=== PATIENT | female | born 1965 | race Caucasian/White ===

== ENCOUNTER 2017-02-20 19:09 | Emergency (ER) | payer BC ==
--- NOTE | 2017-02-21 02:44 | ED ORDER SUMMARY ---
..... Patient: MAZIN MINAYA OrderSheet [facility] VisitID: [id number] [place] [address] 51y, F Registration Date/Time: 02/20/2017 ORDER SHEET Weight: 66.6 kg (stated) Allergies: Amoxicillin GENERAL ORDERS: CBC w Diff [facility]19[facility]19 [facility] (Ack 19:21 CHategekimana) (19:49 RCollier R.N.) CMP Urgent (19:19 02/20/2017 [facility]) (Ack 19:21 CHategekimana) (19:49 RCollier R.N.) UA-Culture if indicated Urgent (19:19 02/20/2017 [facility] DO) (Ack 19:21 CHategekimana) (19:49 RCollier R.N.) Urine Urgent (19:19 02/20/2017 [facility]) (Ack 19:21 CHategekimana) (19:49 RCollier R.N.) Urine Drug Screen Urgent (19:19 02/20/2017 [facility]) (Ack 19:22 CHategekimana) (19:49 RCollier R.N.) Ethyl Alcohol Urgent (19:19 02/20/2017 [facility]) (Ack 19:22 CHategekimana) (19:49 RCollier R.N.) Acetaminophen Level Urgent (19:20 02/20/2017 [facility] DO) (Ack 19:22 CHategekimana) (19:49 RCollier R.N.) Salicylate Level Urgent (19:20 02/20/2017 [facility]) (Ack 19:22 CHategekimana) (19:49 RCollier R.N.) MEDICATION ORDERS: IV FLUIDS: ORDER SHEET NOTES: [Electronically signed by Brianna Wells R.N. (03:26 02/21/2017)] [Electronically signed by Shamir Head Dr. (09:14 02/21/2017)] [Electronically locked/signed by Brianna Wells R.N. (03:26 02/21/2017)Ni
--- NOTE | 2017-02-21 02:44 | ED CLINICAL REPORT ---
Clinical Report - Physicians/Mid Levels [facility] [address] [place] [address] 02/20/2017 19:12 Patient: MAZIN MINAYA Time Seen: 19:18. Arrived- Police present. Historian- patient. HISTORY OF PRESENT ILLNESS Chief Complaint: DEPRESSED. This started just prior to arrival today. (Pt bib [employer] son called police concerned mom had taken an OD of triazolam, per pt there was one pill in the bottle left, pt states taking "a couple of peach vodka shots and a bud light" pt denies SI, police report arriving at pts home with her holding scissors, pt cooperative with police and staff upon arrival. no injurys noted). Recent drug use (prescribed triazolam). Recent alcohol consumption. The patient has had anxiety. Has been depressed. Has had suicidal thoughts (pt denies). No self-injury inflicted. The symptoms are described as moderate. No injury is present. 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 Similar symptoms previously: Recent medical care: Not recently seen/assessed. REVIEW OF SYSTEMS No headache, weakness, chest pain, palpitations or abdominal pain. No vomiting, diarrhea, numbness, fever or sore throat. No cough, difficulty breathing, urinary frequency or skin rash. The patient has had joint pain (myalgias and arthralgias chronically- she relates to fibromyalgia - all chronic). Has had similar previous symptoms of joint pain. PAST HISTORY ( Sexually transmitted disease ("genital warts when I was 18, they've never come back many). Additional Problems: Obsessive Compulsive Disorder. Fibromyalgia.. Additional Surgeries: ..). Medications: PROzac Oral. Hydrocodone-Acetaminophen Oral. ALPRAZolam Oral. Gabapentin Oral. Allergies: Amoxicillin. SOCIAL HISTORY Smoker- current status unknown. Occasional alcohol use. Under the influence in E.D. Has social support. ADDITIONAL NOTES The nursing notes have been reviewed. PHYSICAL EXAM Vital Signs: 02/20/2017 19:14 BP: 158/91. HR: 101. RR: 19. O2 saturation: 97%. Temp: 97.9 F. Pain level now: 0/10. Appearance: Alert. Patient is in mild distress. Patient is cooperative. Eyes: Pupils equal, round and reactive to light. No scleral icterus. ENT: The mucous membranes are not dry. Neck: Normal inspection. Neck supple. No meningeal signs or carotid bruit. CVS: Tachycardia. Heart sounds normal. Respiratory: Breath sounds normal. Chest nontender. Abdomen: Soft and nontender. Back: No tenderness. Skin: Skin warm and dry. Normal skin color. Normal skin turgor. Extremities: Extremities exhibit normal ROM. No calf tenderness. No lower extremity edema. Psych / Neuro: Oriented X 3. Speech is slurred. She is not disoriented. No apparent hallucinations or delusions. Denies suicidal thoughts. Patient does not express homicidal thoughts. Cranial nerves normal (as tested). Abnormal gait. No motor deficit. No sensory deficit. Reflexes normal. LABS, X-RAYS, AND EKG Laboratory Tests: UA-Culture if indicated: (RUBEN: 02/20/2017 19:37) ( MsgRcvd 02/20/2017 19:58) Final results Test Result Flag Units (Reference) URINE COLOR LIGHT YELLOW URINE APPEARANCE CLEAR URINE GLUCOSE NEGATIVE (NEGATIVE) URINE BILIRUBIN NEGATIVE (NEGATIVE) URINE KETONE NEGATIVE (NEGATIVE) URINE SPECIFIC GRAVITY <= 1.005 L (1.010-1.030) URINE PH 6.0 (5.0-8.0) URINE PROTEIN NEGATIVE (NEGATIVE) URINE UROBILINOGEN 0.2 EU/dL (0.2-1.0) URINE NITRITE NEGATIVE (NEGATIVE) URINE BLOOD NEGATIVE (NEGATIVE) URINE LEUK ESTERASE NEGATIVE (NEGATIVE) URINE RBC NONE SEEN rbc/hpf (0-1) URINE WBC 0-1 wbc/hpf (0-1) URINE EPITHELIAL CELLS 1-3 EPI/hpf (0-5) URINE BACTERIA NONE SEEN (NONE SEEN) URINE COMMENT CULT NOT INDICATED URINE CULTURES ARE SET-UP BASED ON THE FOLLOWING CRITERIA:POSITIVE NITRITEPOSITIVE LEUKOCYTE ESTERASEGREATER THAN 10 WHITE BLOOD CELLSMODERATE (2+) OR GREATER BACTERIA Urine: (RUBEN: 02/20/2017 19:37) ( [facility] 02/20/2017 19:50) Final results Test Result Flag Units (Reference) URINE NEGATIVE CBC w Diff: (RUBEN: 02/20/2017 19:30) ( [facility] 02/20/2017 19:48) Final results Test Result Flag Units (Reference) WHITE BLOOD COUNT 10.1 K/uL (4.5-11.5) RED BLOOD COUNT 4.57 M/uL (4.00-5.20) HEMOGLOBIN 15.1 gm/dL (12.0-16.0) HEMATOCRIT 44.4 % (36.0-46.0) MEAN CELL VOLUME 97 fL (80-100) MEAN CORPUSCULAR HGB 33 pg (26-34) MEAN CORPUSCULAR HGB CONC 34 g/dL (31-37) RED CELL DISTRIBUTION WIDTH 12.5 % (11.6-14.8) PLATELET COUNT 173 K/uL (150-400) NEUTROPHIL % 52.4 % (50-75) LYMPH % 40.0 % (25-40) MONO % 5.2 % (3-14) EOSINOPHIL % 0.7 % (0-4) BASOPHIL % 1.7 % (0-2) Salicylate Level: (RUBEN: 02/20/2017 19:30) ( [facility] 02/20/2017 19:50) Final results Test Result Flag Units (Reference) SALICYLATE 5.3 mg/dL (2.8-20) Urine Drug Screen: (RUBEN: 02/20/2017 19:37) ( [facility] 02/20/2017 20:05) Final results Test Result Flag Units (Reference) AMPHETAMINE/METHAMPHETAMINE NEGATIVE (NEGATIVE) BARBITURATE NEGATIVE (NEGATIVE) BENZODIAZEPINE POSITIVE H (NEGATIVE) CANNABINOID NEGATIVE (NEGATIVE) COCAINE NEGATIVE (NEGATIVE) ECSTASY NEGATIVE (NEGATIVE) METHADONE NEGATIVE (NEGATIVE) OPIATE NEGATIVE (NEGATIVE) The urine drug screen is a qualitative screening test fordrug overdose and abuse. All screen results should beconsidered as presumptive.Drugs screened for are as follows:BenzodiazepinesCocaineAmphetamines/MetamphetaminesTHC (Tetrahydrocannabinol)OpiatesBarbituratesEcstasyMethadonePositive results are unconfirmed. For confirmation, notifythe lab for the specimen to be sent to the reference lab.All confirmations must be performed by a differentmethodology.The ingestion of natural herbal and plant productscontaining Ephedra/Ephedra metabolites can produce in urineone or more substances capable of cross reacting withamphetamine/methamphetamine immunoassays. These testsprovide a preliminary result only. A more specificalternative chemical method must be used to obtain aconfirmed analytical result. CMP: (RUBEN: 02/20/2017 19:30) ( MsgRcvd 02/20/2017 20:12) Final results Test Result Flag Units (Reference) GLUCOSE 107 mg/dL (70-110) BUN 10 mg/dL (7-18) CREATININE 0.7 mg/dL (0.6-1.3) Estimated GFR >60 mL/min Estimated GFR- >60 mL/min Note: Persistent reduction over 3 months in eGFR<60 mL/min/1.73 m2 defines CKD. Patients with eGFR values>=60 mL/min/1.73 m2 may also have CKD if evidence ofpersistent proteinuria. Additional information may be foundat www.kidney.org. SODIUM 146 H mmol/L (136-145) POTASSIUM 3.6 mmol/L (3.5-5.1) CHLORIDE 107 mmol/L (98-107) CARBON DIOXIDE 29 mmol/L (21-32) CALCIUM 9.2 mg/dL (8.5-10.1) TOTAL PROTEIN 7.4 g/dL (6.4-8.2) ALBUMIN 3.7 g/dL (3.3-5.0) BILIRUBIN, TOTAL 0.4 mg/dL (0.0-1.0) ALKALINE PHOSPHATASE 114 U/L (46-116) AST (SGOT) 65 H U/L (15-37) ALT (SGPT) 74 U/L (12-78) ETHYL ALCOHOL 229 H mg/dL (3-10) ACETAMINOPHEN < 2.0 L ug/mL (10-30) . (Breathalyzer 0.234). Pulse Oximetry: 02/20/2017 19:14 O2 saturation: 97%. (FIO2 - room air). Interpretation: normal. PROGRESS AND PROCEDURES Course of Care: 02:41 02/21/17. Cleared by PAT, pt is not suicidal or homicidal. Safety contract signed. Patient/family counseled. Old ED records reviewed. Disposition: Discharged home in good and improved condition. Condition: good. CLINICAL IMPRESSION Suicidal ideation Chronic substance abuse- benzodiazepines with intoxication and drug induced mood disorder. Uncomplicated alcohol intoxication. No alcohol intoxication with delirium or alcohol dependence. INSTRUCTIONS Do not smoke. Seek medical help to quit smoking. No alcohol. Seek medical help to quit drinking. Follow-up: Follow up with your doctor tomorrow. Call for an appointment. Screening today revealed the patient's blood pressure to be in the pre-hypertensive range. The patient should follow up with a primary care provider for blood pressure management. (Electronically signed by Shamir Head Dr. 02/21/2017 9:14)
--- NOTE | 2017-02-21 02:44 | ED ORDER SUMMARY ---
..... Patient: MAZIN MINAYA OrderSheet [facility] VisitID: [id number] [place] [address] 51y, F Registration Date/Time: 02/20/2017 ORDER SHEET Weight: 66.6 kg (stated) Allergies: Amoxicillin GENERAL ORDERS: CBC w Diff Urgent (19:19 [facility] (Ack 19:21 CHategekimana) (19:49 RCollier R.N.) CMP Urgent (19:19 02/20/2017 [facility]) (Ack 19:21 CHategekimana) (19:49 RCollier R.N.) UA-Culture if indicated Urgent (19:19 02/20/2017 [facility] DO) (Ack 19:21 CHategekimana) (19:49 RCollier R.N.) Urine Urgent (19:19 02/20/2017 [facility]) (Ack 19:21 CHategekimana) (19:49 RCollier R.N.) Urine Drug Screen Urgent (19:19 02/20/2017 [facility]) (Ack 19:22 CHategekimana) (19:49 RCollier R.N.) Ethyl Alcohol Urgent (19:19 02/20/2017 [facility]) (Ack 19:22 CHategekimana) (19:49 RCollier R.N.) Acetaminophen Level Urgent (19:20 02/20/2017 [facility] DO) (Ack 19:22 CHategekimana) (19:49 RCollier R.N.) Salicylate Level Urgent (19:20 02/20/2017 [facility]) (Ack 19:22 CHategekimana) (19:49 RCollier R.N.) MEDICATION ORDERS: IV FLUIDS: ORDER SHEET NOTES: [Electronically signed by Brianna Wells R.N. (03:26 02/21/2017)] [Electronically signed by Shamir Head Dr. (09:14 02/21/2017)] [Electronically locked/signed by Brianna Wells R.N. (03:26 02/21/2017)Ni
--- NOTE | 2017-02-21 02:44 | ED NURSING NOTES ---
Clinical Report - Nurses [facility] [address] [place] [address] 02/20/2017 19:12 Patient: MAZIN MINAYA TRIAGE Triage time 19:14 Feb 20 2017. Acuity: LEVEL 2. Chief Complaint: DEPRESSION and (pt bib [employer] son called police concerned mom had taken an OD of triazolam, per pt there was one pill in the bottle left, pt states taking "a couple of peach vodka shots and a bud light" pt denies SI, police report arriving at pts home with her holding scissors, pt cooperative with police and staff upon arrival. no injurys noted). Alert. SEPSIS SCREEN: Sepsis Screen. Negative (no infection suspected/documented). JAY COMA SCORE: Jay Coma Scale: 15- eyes open spontaneously (4); best verbal response- oriented x 4 (5); best motor response- obeys commands (6). BREATHALYZER: Breathalyzer (0.234). --19:21 Kaylynn Stewart R.N. 19:14 02/20/17. BP: 158/91. HR: 101. RR: 19. O2 saturation: 97% on room air. Temp: 97.9 F. Pain level now: 0/10. --19:21 Kaylynn Stewart R.N. Weight: 66.6 kg stated. Height/Length: 65 inches Per Patient. BMI: 24.5. --19:18 Kaylynn Stewart R.N. Medications Gabapentin Oral. --19:27 Kaylynn Stewart R.N. ALPRAZolam Oral. --19:27 Kaylynn Stewart R.N. Hydrocodone-Acetaminophen Oral. --19:27 Kaylynn Stewart R.N. PROzac Oral. --19:27 Kaylynn Stewart R.N. Allergies Amoxicillin. --19:26 Page-Kuchan, Karyol, R.N. Medication/allergy information source: the patient. --19:21 Kaylynn Stewart R.N. History Historian: patient. Arrived in police custody from home and in police custody. Onset: just prior to arrival. She describes feelings of depression. Treatment CLINICAL CYTOPATHOLOGIST: None. PAST MEDICAL HX: Immunizations: up-to-date. The patient is post-menopausal. SOCIAL HX: Smoker- current status unknown (cigarette). Occasional alcohol use. Patient smells of ETOH in the emergency department. No infectious disease exposure. ABUSE ASSESSMENT: No report of abuse. SELF HARM ASSESSMENT: A self harm assessment was performed. The patient answered "yes" to the question "Have you recently felt down, depressed, or hopeless?" and "Have you noticed less interest or pleasure in doing things?" and "no" to the question "Do you have thoughts of harming or killing yourself?", "Are you here because you tried to hurt yourself?", "Have you ever tried to hurt yourself before today?", "Have you recently had thoughts about harming or killing others?" and "Do you have any dangerous items in your possession?". The police reported the patient's behavior. 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 FALL RISK ASSESSMENT: Fall risk assessment completed. No fall risk identified. NUTRITIONAL RISK ASSESSMENT: The nutritional risk assessment revealed no deficiencies. FUNCTIONAL ASSESSMENT: Functional assessment: no impairments noted. LEARNING NEEDS ASSESSMENT: The learning needs assessment revealed no barriers. SKIN INTEGRITY ASSESSMENT: Skin integrity risk assessment completed. No skin integrity risk identified. --19:21 Kaylynn Stewart R.N. PROBLEMS: ADHD - Attention Deficit Hyperactivity Disorder. STD - Sexually Transmitted Disease. Obsessive Compulsive Disorder. Fibromyalgia. --:28 Kaylynn Stewart R.N. ADDITIONAL SURGERIES: . --28 Kaylynn Stewart R.N. Interventions ID and allergy band on patient. ID and allergy band checked. Protocol initiated at triage (behavioral health). To treatment room. --19:21 Kaylynn Stewart R.N. PHYSICAL ASSESSMENT GENERAL / NEURO / PSYCH: Alert. Oriented X 4. Appears in no acute distress. Appears anxious. She is awake and alert, has a steady gait and shows no apparent trauma. She is pink and well hydrated, appears anxious, has poor eye contact and exhibits poor consolability. She is well nourished, exhibits normal mobility, appearance is consistent with stated age and is well developed and well dressed. Speech within normal limits. Patient's mood/affect appears tearful. Appears anxious, frustrated, sad and tearful. Mood/affect not suicidal. Patient appears well-nourished and neat and clean. RESPIRATORY: Respirations not labored. CVS: Capillary refill less than 2 seconds. GI / : Abdomen soft and nontender. SKIN: Skin intact. Skin is warm and dry. Skin color is within normal limits. --19:22 Kaylynn Stewart R.N. NURSING PROGRESS NOTES Patient ID band checked for patient name and birthdate: patient confirmed. Blood samples drawn from the right forearm and left antecubital space with 23g by tech per protocol ; labeled in presence of the patient and sent to lab: [facility]. --19:32 Payal Chinchilla R.N. Patient ID band checked for patient name and birthdate: patient confirmed. Instructions provided to collect clean catch urine and patient verbalized understanding. Clean catch urine collected with return of yellow-colored urine; sample sent to lab for urinalysis and drug screen. Specimen labeled in the presence of the patient. Call light placed in reach. Side rails up x 1. ( pts son in [facility], pt wishes to see pt, pts clothing bagged/tagged, pt to bathroom with steady gait, collected urine for drug screen, pt updated on poc to see social science instructor, pt notified she must be legally sober to speak with sw). --19:46 Kaylynn Stewart R.N. ( nephew at bedside, pts son left his telephone number for the chart so when SW has an ETA he would like to speak with them.). --20:39 Kaylynn Stewart R.N. ( pts belongings bagged/tagged and placed in locker number 5 with lock number 2). --20:39 Kaylynn Stewart R.N. ( telephone number for son Perez [phone]). --20:40 Kaylynn Stewart R.N. ( PT requiring frequent reminders to stay in room, pt cont tearful "this is wrong, this is wrong"). --21:27 Kaylynn Stewart R.N. Call light placed in reach. Side rails up x 1. ( pt given gatorade, declined offer of food, pt waiting sober for SW). --22:00 Kaylynn Stewart R.N. 21:59 02/20/17. BP: 133/81. HR: 80. RR: 17. O2 saturation: 100%. Pain level now: 0. --22:00 Kaylynn Stewart R.N. Care transferred and report given (Brianna RN). --22:15 Kaylynn Stewart R.N. The patient reports no complaints. Overall patient status is improved- she states feels better. ( pt given warm blanket, and water. pt calm and resting). GENERAL / NEURO / PSYCH: Alert. Patient appears calm and cooperative. Affect appears normal. RESPIRATORY: No respiratory distress. SKIN: Skin is warm and dry. Skin color within normal limits. --23:24 Brianna Wells R.N. Two patient identifiers checked. Call light placed in reach. Side rails up x 1. Bed placed in lowest position. Brakes of bed on. --23:24 Brianna Wells R.N. ( breathalyzer .092). --23:52 Rodney Deleon, ER Block Layer. DISPOSITION / DISCHARGE Departure time: 308. Condition at departure: improved and stable. ( pt A&O x4 at time of DC and ambulated out of department without gait disturbance with family). No learning barriers present. Discharge instructions provided and reviewed with the patient. Reviewed referral to family practice for followup. Patient verbalized understanding. Written instructions provided in Tajik. No medication instructions. The patient was discharged home and accompanied by family. She left the Emergency Department ambulatory and via private vehicle. Family member driving. FALL RISK ASSESSMENT: Fall risk assessment completed. No fall risk identified. --03:26 Brianna Wells R.N. 03:09 02/21/17. BP: 138/91 taken on the left arm, while lying. HR: 88 (regular and normal rate). RR: 18 (regular and unlabored). O2 saturation: 96% on room air. Temp: deferred. Pain level now: 0/10. --03:26 Brianna Wells R.N. Locked/Released at 02/21/2017 3:26 by Brianna Wells R.N.
--- NOTE | 2017-02-21 02:44 | ED NURSING NOTES ---
Clinical Report - Nurses [facility] [address] [place] [address] 02/20/2017 19:12 Patient: MAZIN MINAYA TRIAGE Triage time 19:14 Feb 20 2017. Acuity: LEVEL 2. Chief Complaint: DEPRESSION and (pt bib [employer] son called police concerned mom had taken an OD of triazolam, per pt there was one pill in the bottle left, pt states taking "a couple of peach vodka shots and a bud light" pt denies SI, police report arriving at pts home with her holding scissors, pt cooperative with police and staff upon arrival. no injurys noted). Alert. SEPSIS SCREEN: Sepsis Screen. Negative (no infection suspected/documented). JAY COMA SCORE: Jay Coma Scale: 15- eyes open spontaneously (4); best verbal response- oriented x 4 (5); best motor response- obeys commands (6). BREATHALYZER: Breathalyzer (0.234). --19:21 Kaylynn Stewart R.N. 19:14 02/20/17. BP: 158/91. HR: 101. RR: 19. O2 saturation: 97% on room air. Temp: 97.9 F. Pain level now: 0/10. --19:21 Kaylynn Stewart R.N. Weight: 66.6 kg stated. Height/Length: 65 inches Per Patient. BMI: 24.5. --19:18 Kaylynn Stewart R.N. Medications Gabapentin Oral. --19:27 Kaylynn Stewart R.N. ALPRAZolam Oral. --19:27 Kaylynn Stewart R.N. Hydrocodone-Acetaminophen Oral. --19:27 Kaylynn Stewart R.N. PROzac Oral. --19:27 Kaylynn Stewart R.N. Allergies Amoxicillin. --19:26 Page-Kuchan, Karyol, R.N. Medication/allergy information source: the patient. --19:21 Kaylynn Stewart R.N. History Historian: patient. Arrived in police custody from home and in police custody. Onset: just prior to arrival. She describes feelings of depression. 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 PAST MEDICAL HX: Immunizations: up-to-date. The patient is post-menopausal. SOCIAL HX: Smoker- current status unknown (cigarette). Occasional alcohol use. Patient smells of ETOH in the emergency department. No infectious disease exposure. ABUSE ASSESSMENT: No report of abuse. SELF HARM ASSESSMENT: A self harm assessment was performed. The patient answered "yes" to the question "Have you recently felt down, depressed, or hopeless?" and "Have you noticed less interest or pleasure in doing things?" and "no" to the question "Do you have thoughts of harming or killing yourself?", "Are you here because you tried to hurt yourself?", "Have you ever tried to hurt yourself before today?", "Have you recently had thoughts about harming or killing others?" and "Do you have any dangerous items in your possession?". The police reported the patient's behavior. 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 FALL RISK ASSESSMENT: Fall risk assessment completed. No fall risk identified. NUTRITIONAL RISK ASSESSMENT: The nutritional risk assessment revealed no deficiencies. FUNCTIONAL ASSESSMENT: Functional assessment: no impairments noted. LEARNING NEEDS ASSESSMENT: The learning needs assessment revealed no barriers. SKIN INTEGRITY ASSESSMENT: Skin integrity risk assessment completed. No skin integrity risk identified. --19:21 Kaylynn Stewart R.N. PROBLEMS: ADHD - Attention Deficit Hyperactivity Disorder. STD - Sexually Transmitted Disease. Obsessive Compulsive Disorder. Fibromyalgia. --:28 Kaylynn Stewart R.N. ADDITIONAL SURGERIES: . --28 Kaylynn Stewart R.N. Interventions ID and allergy band on patient. ID and allergy band checked. Protocol initiated at triage (behavioral health). To treatment room. --19:21 Kaylynn Stewart R.N. PHYSICAL ASSESSMENT GENERAL / NEURO / PSYCH: Alert. Oriented X 4. Appears in no acute distress. Appears anxious. She is awake and alert, has a steady gait and shows no apparent trauma. She is pink and well hydrated, appears anxious, has poor eye contact and exhibits poor consolability. She is well nourished, exhibits normal mobility, appearance is consistent with stated age and is well developed and well dressed. Speech within normal limits. Patient's mood/affect appears tearful. Appears anxious, frustrated, sad and tearful. Mood/affect not suicidal. Patient appears well-nourished and neat and clean. RESPIRATORY: Respirations not labored. CVS: Capillary refill less than 2 seconds. GI / : Abdomen soft and nontender. SKIN: Skin intact. Skin is warm and dry. Skin color is within normal limits. --19:22 Kaylynn Stewart R.N. NURSING PROGRESS NOTES Patient ID band checked for patient name and birthdate: patient confirmed. Blood samples drawn from the right forearm and left antecubital space with 23g by tech per protocol ; labeled in presence of the patient and sent to lab: rainbow set. --19:32 Payal Chinchilla R.N. Patient ID band checked for patient name and birthdate: patient confirmed. Instructions provided to collect clean catch urine and patient verbalized understanding. Clean catch urine collected with return of yellow-colored urine; sample sent to lab for urinalysis and drug screen. Specimen labeled in the presence of the patient. Call light placed in reach. Side rails up x 1. ( pts [facility], pt wishes to see pt, pts clothing bagged/tagged, pt to bathroom with steady gait, collected urine for drug screen, pt updated on poc to see director social welfare, pt notified she must be legally sober to speak with sw). --19:46 Kaylynn Stewart R.N. ( nephew at bedside, pts son left his telephone number for the chart so when SW has an ETA he would like to speak with them.). --20:39 Kaylynn Stewart R.N. ( pts belongings bagged/tagged and placed in locker number 5 with lock number 2). --20:39 Kaylynn Stewart R.N. ( telephone number for son Perez [phone]). --20:40 Kaylynn Stewart R.N. ( PT requiring frequent reminders to stay in room, pt cont tearful "this is wrong, this is wrong"). --21:27 Kaylynn Stewart R.N. Call light placed in reach. Side rails up x 1. ( pt given gatorade, declined offer of food, pt waiting sober for SW). --22:00 Kaylynn Stewart R.N. 21:59 02/20/17. BP: 133/81. HR: 80. RR: 17. O2 saturation: 100%. Pain level now: 0. --22:00 Kaylynn Stewart R.N. Care transferred and report given (Brianna RN). --22:15 Kaylynn Stewart R.N. The patient reports no complaints. Overall patient status is improved- she states feels better. ( pt given warm blanket, and water. pt calm and resting). GENERAL / NEURO / PSYCH: Alert. Patient appears calm and cooperative. Affect appears normal. RESPIRATORY: No respiratory distress. SKIN: Skin is warm and dry. Skin color within normal limits. --23:24 Brianna Wells R.N. Two patient identifiers checked. Call light placed in reach. Side rails up x 1. Bed placed in lowest position. Brakes of bed on. --23:24 Brianna Wells R.N. ( breathalyzer .092). --23:52 Rodney Deleon, ER Bench Assembly Inspector. DISPOSITION / DISCHARGE Departure time: 308. Condition at departure: improved and stable. ( pt A&O x4 at time of DC and ambulated out of department without gait disturbance with family). No learning barriers present. Discharge instructions provided and reviewed with the patient. Reviewed referral to family practice for followup. Patient verbalized understanding. Written instructions provided in [place]. No medication instructions. The patient was discharged home and accompanied by family. She left the Emergency Department ambulatory and via private vehicle. Family member driving. FALL RISK ASSESSMENT: Fall risk assessment completed. No fall risk identified. --03:26 Brianna Wells R.N. 03:09 02/21/17. BP: 138/91 taken on the left arm, while lying. HR: 88 (regular and normal rate). RR: 18 (regular and unlabored). O2 saturation: 96% on room air. Temp: deferred. Pain level now: 0/10. --03:26 Brianna Wells R.N. Locked/Released at 02/21/2017 3:26 by Brianna Wells R.N.
--- NOTE | 2017-02-21 09:14 | ED MAR SUMMARY ---
..... Medication Administration Record [facility] [address] [place], [place] [id number] Patient: MAZIN MINAYA Visit ID: [id number] 51y, F Weight: 66.6 kg Height/Length: 65 in BMI: 24.5 ALLERGIES: Amoxicillin
--- NOTE | 2017-02-21 09:14 | ED MAR SUMMARY ---
..... Medication Administration Record [facility] [address] [place], [place] [id number] Patient: MAZIN MINAYA Visit ID: [id number] 51y, F Weight: 66.6 kg Height/Length: 65 in BMI: 24.5 ALLERGIES: Amoxicillin
--- NOTE | 2017-02-21 09:14 | ED DISCHARGE INSTRUCTIONS ---
Patient: MAZIN MINAYA General Instructions [facility] VisitID: [id number] [place] [address] 51y, F Registration Date/Time: 02/20/2017 Suicidal ideation Chronic substance abuse- benzodiazepines with intoxication and drug induced mood disorder. Uncomplicated alcohol intoxication. No alcohol intoxication with delirium or alcohol dependence. INSTRUCTIONS Do not smoke. Seek medical help to quit smoking. No alcohol. Seek medical help to quit drinking. Follow-up: Follow up with your doctor tomorrow. Call for an appointment. Screening today revealed the patient's blood pressure to be in the pre-hypertensive range. The patient should follow up with a primary care provider for blood pressure management. ADDITIONAL INFORMATION Depression Depression is one of the most common mental health problems today. It is not just a state of unhappiness or sadness. It is a true disease. The cause seems to be related to a decrease in chemicals that transmit signals in the brain. Having a family history of depression, alcoholism or suicide increases the risk. Chronic illness, chronic pain, migraine headaches and high emotional stress also increase the risk. Depression can cause many different symptoms, such as: -- Loss of appetite -- Over-eating -- Not being able to sleep -- Sleeping too much -- Tiredness not related to physical exertion -- Restlessness or irritability -- Slowness of movement or speech -- Feeling depressed or withdrawn -- Loss of interest in things you once enjoyed -- Difficulty in concentrating, poor memory, have trouble making decisions -- Thoughts of harming or killing oneself, or thoughts that life is not worth living -- Low self-esteem The best treatment for depression is a combination of medicine and psychotherapy. Antidepressant medicines can reduce suffering and can improve the ability to function during the depressed period. Therapy can offer emotional support and help you understand emotional factors that may be causing the depression. Home Care: 1) Be kind to yourself. Make it a point to do things that you enjoy (gardening, walking in nature, going to a movie, etc.). Reward yourself for small successes. 2) Take care of your physical body. Eat a balanced diet (low in saturated fat and high in fruits and vegetables). Establish an exercise plan at least 3 times a week for 30 minutes. Even mild-moderate exercise (like brisk walking) can make you feel better. 3) Avoid alcohol, which can make depression worse. Follow-Up with your doctor as advised. It is important to keep in contact with a health care provider until your symptoms begin to improve. Get Prompt Medical Attention if any of the following occur: -- Feeling extreme depression, fear, anxiety, or anger toward yourself or others -- Feeling out of control -- Feeling that you may try to harm yourself or another -- Hearing voices that others do not hear -- Seeing things that others do not see -- Cant sleep or eat for 3 days in a row Alcohol Intoxication Alcohol intoxication occurs when you drink alcohol faster than your liver can remove it from your system. Alcohol intoxication affects your judgment and coordination. Very high blood alcohol levels can cause coma, very slow breathing and even . If you drink alcohol every day, this may gradually cause permanent damage to your liver, brain, heart, pancreas and other organs. Alcohol use during may cause permanent damage to the growing baby. Home Care: Do not drink any more alcohol. DO NOT DRIVE until all effects of the alcohol have worn off. Get lots of rest over the next few days. Drink plenty of water and other non-alcoholic liquids. Try to eat regular meals. If you have been drinking heavily on a daily basis, you may go through alcohol withdrawl. This is also called the shakes or DTs. The usual symptoms last 3 to 4 days and may include nervousness, shakiness, nausea, sweating or sleeplessness. During this time, it is best that you stay with family or friends who can help and support you. You can also admit yourself to a residential detox program. If your symptoms are severe, contact your doctor for medicines to help. Follow Up: If alcohol is causing a problem in your life, these and other organizations can help you: Alcoholics Anonymous offers support through a self-help fellowship. There are no dues or fees. See the Yellow Pages and call for time and place of meetings. www.aa.org [place] offers support to families of alcohol users. 952.711.1975 www.al-anon.org National [place] On Alcoholism And Drug Dependence 509-542-3919 www.ncadd.org There are also inpatient or residential alcohol detox programs. Check the Internet or phonebook Yellow Pages under Drug Abuse & Treatment Centers. Get Prompt Medical Attention if any of the following occur: there) How To Quit Smoking Smoking is one of the hardest habits to break. About half of all those who have ever smoked have been able to quit, and most of those (about 70%) who still smoke want to quit. Here are some of the best ways to stop smoking. Keep Trying: It takes most smokers about 8 tries before they are finally able to fully quit. So, the more often you try and fail, the better your chance of quitting the next time! So, don't give up! Go Cold [place]acon: Most ex-smokers quit cold turkey. Trying to cut back gradually doesn't seem to work as well, perhaps because it continues the smoking habit. Also, it is possible to fool yourself by inhaling more while smoking fewer cigarettes. This results in the same amount of nicotine in your body! Get Support: Support programs can make an important difference, especially for the heavy smoker. These groups offer lectures, methods to change your behavior and peer support. Call the free national Quitline for more information. 698-EVES-XCT (914-058-4416). Low-cost or free programs are offered by many hospitals, local chapters of the [place] [employer] (152-731-4425) and the [place] [employer] (610-608-8495). Support at home is important too. Non-smokers can help by offering praise and encouragement. If the smoker fails to quit, encourage them to try again! Uimo-Nxu-Idwajfp Medicines: For those who can't quit on their own, Nicotine Replacement Therapy (NRT) may make quitting much easier. Certain aids such as the nicotine patch, gum and lozenge are available without a prescription. However, it is best to use these under the guidance of your doctor. The skin patch provides a steady supply of nicotine to the body. Nicotine gum and lozenge gives temporary bursts of low levels of nicotine. Both methods take the edge off the craving for cigarettes. WARNING: If you feel symptoms of nicotine overdose, such as nausea, vomiting, dizziness, weakness, or fast heartbeat, stop using these and see your doctor. Prescription Medicines: After evaluating your smoking patterns and prior attempts at quitting, your doctor may offer a prescription medicine such as bupropion (Zyban, Wellbutrin), varenicline (Chantix, Champix), a niocotine inhaler or nasal spray. Each has its unique advantage and side effects which your doctor can review with you. Health Benefits Of Quitting: The benefits of quitting start right away and keep improving the longer you go without smokin minutes: blood pressure and pulse return to normal 8 hours: oxygen levels return to normal 2 days: ability to smell and taste begins to improve as damaged nerves start to regrow 2-3 weeks: circulation and lung function improves 1-9 months: decreased cough, congestion and shortness of breath; less tired 1 year: risk of heart attack decreases by half 5 years: risk of lung cancer decreases by half; risk of stroke becomes the same as a non-smoker For information about how to quit smoking, visit the following links: National Cancer [place] , Clearing the Air, Quit Smoking Today - an online booklet. http://www.smokefree.gov/pubs/clearing_the_air.pdf Smokefree.gov http://smokefree.gov/ QuitNet http://www.quitnet.com/ You have been given the following additional information: Depression Alcohol Intoxication Smoking Cessation (Electronically signed by Shamir Head Dr. 02/21/2017 9:14)
--- NOTE | 2017-02-21 09:14 | ED MED RECONCILIATION SUMMARY ---
Patient: MARIELEMANUELMAZIN Medication Reconciliation Report [facility] VisitID: [id number] [address] [place] [address] 51y, F Registration Date/Time: 02/20/2017 Weight: 66.6 kg Height/Length: 65 in. BMI: 24.5 ALLERGIES: Amoxicillin The patient's Home Medications are listed below: THE FOLLOWING MEDICATIONS NEED TO BE RECONCILED: ALPRAZolam Oral Gabapentin Oral Hydrocodone-Acetaminophen Oral PROzac Oral The source(s) of the original Home Medication information: patient The following Medications were given to the patient in the Emergency Department: None. The following Medications were prescribed to the patient: None.
--- NOTE | 2017-02-21 09:14 | ED MED RECONCILIATION SUMMARY ---
Patient: MARIELEMANUELMAZIN Medication Reconciliation Report [facility] VisitID: [id number] [address] [place] [address] 51y, F Registration Date/Time: 02/20/2017 Weight: 66.6 kg Height/Length: 65 in. BMI: 24.5 ALLERGIES: Amoxicillin The patient's Home Medications are listed below: THE FOLLOWING MEDICATIONS NEED TO BE RECONCILED: ALPRAZolam Oral Gabapentin Oral Hydrocodone-Acetaminophen Oral PROzac Oral The source(s) of the original Home Medication information: patient The following Medications were given to the patient in the Emergency Department: None. The following Medications were prescribed to the patient: None.
--- NOTE | 2017-02-21 09:14 | ED DISCHARGE INSTRUCTIONS ---
Patient: MAZIN MINAYA General Instructions [facility] VisitID: [id number] [place] [address] 51y, F Registration Date/Time: 02/20/2017 Suicidal ideation Chronic substance abuse- benzodiazepines with intoxication and drug induced mood disorder. Uncomplicated alcohol intoxication. No alcohol intoxication with delirium or alcohol dependence. INSTRUCTIONS Do not smoke. Seek medical help to quit smoking. No alcohol. Seek medical help to quit drinking. Follow-up: Follow up with your doctor tomorrow. Call for an appointment. Screening today revealed the patient's blood pressure to be in the pre-hypertensive range. The patient should follow up with a primary care provider for blood pressure management. ADDITIONAL INFORMATION Depression Depression is one of the most common mental health problems today. It is not just a state of unhappiness or sadness. It is a true disease. The cause seems to be related to a decrease in chemicals that transmit signals in the brain. Having a family history of depression, alcoholism or suicide increases the risk. Chronic illness, chronic pain, migraine headaches and high emotional stress also increase the risk. Depression can cause many different symptoms, such as: -- Loss of appetite -- Over-eating -- Not being able to sleep -- Sleeping too much -- Tiredness not related to physical exertion -- Restlessness or irritability -- Slowness of movement or speech -- Feeling depressed or withdrawn -- Loss of interest in things you once enjoyed -- Difficulty in concentrating, poor memory, have trouble making decisions -- Thoughts of harming or killing oneself, or thoughts that life is not worth living -- Low self-esteem The best treatment for depression is a combination of medicine and psychotherapy. Antidepressant medicines can reduce suffering and can improve the ability to function during the depressed period. Therapy can offer emotional support and help you understand emotional factors that may be causing the depression. Home Care: 1) Be kind to yourself. Make it a point to do things that you enjoy (gardening, walking in nature, going to a movie, etc.). Reward yourself for small successes. 2) Take care of your physical body. Eat a balanced diet (low in saturated fat and high in fruits and vegetables). Establish an exercise plan at least 3 times a week for 30 minutes. Even mild-moderate exercise (like brisk walking) can make you feel better. 3) Avoid alcohol, which can make depression worse. Follow-Up with your doctor as advised. It is important to keep in contact with a health care provider until your symptoms begin to improve. Get Prompt Medical Attention if any of the following occur: -- Feeling extreme depression, fear, anxiety, or anger toward yourself or others -- Feeling out of control -- Feeling that you may try to harm yourself or another -- Hearing voices that others do not hear -- Seeing things that others do not see -- Cant sleep or eat for 3 days in a row Alcohol Intoxication Alcohol intoxication occurs when you drink alcohol faster than your liver can remove it from your system. Alcohol intoxication affects your judgment and coordination. Very high blood alcohol levels can cause coma, very slow breathing and even . If you drink alcohol every day, this may gradually cause permanent damage to your liver, brain, heart, pancreas and other organs. Alcohol use during may cause permanent damage to the growing baby. Home Care: Do not drink any more alcohol. DO NOT DRIVE until all effects of the alcohol have worn off. Get lots of rest over the next few days. Drink plenty of water and other non-alcoholic liquids. Try to eat regular meals. If you have been drinking heavily on a daily basis, you may go through alcohol withdrawl. This is also called the shakes or DTs. The usual symptoms last 3 to 4 days and may include nervousness, shakiness, nausea, sweating or sleeplessness. During this time, it is best that you stay with family or friends who can help and support you. You can also admit yourself to a residential detox program. If your symptoms are severe, contact your doctor for medicines to help. Follow Up: If alcohol is causing a problem in your life, these and other organizations can help you: Alcoholics Anonymous offers support through a self-help fellowship. There are no dues or fees. See the Yellow Pages and call for time and place of meetings. www.aa.org [place] offers support to families of alcohol users. 353.880.5035 www.al-anon.org National [place] On Alcoholism And Drug Dependence 321-933-8587 www.ncadd.org There are also inpatient or residential alcohol detox programs. Check the Internet or phonebook Yellow Pages under Drug Abuse & Treatment Centers. Get Prompt Medical Attention if any of the following occur: there) How To Quit Smoking Smoking is one of the hardest habits to break. About half of all those who have ever smoked have been able to quit, and most of those (about 70%) who still smoke want to quit. Here are some of the best ways to stop smoking. Keep Trying: It takes most smokers about 8 tries before they are finally able to fully quit. So, the more often you try and fail, the better your chance of quitting the next time! So, don't give up! Go Cold [place]: Most ex-smokers quit cold turkey. Trying to cut back gradually doesn't seem to work as well, perhaps because it continues the smoking habit. Also, it is possible to fool yourself by inhaling more while smoking fewer cigarettes. This results in the same amount of nicotine in your body! Get Support: Support programs can make an important difference, especially for the heavy smoker. These groups offer lectures, methods to change your behavior and peer support. Call the free national Quitline for more information. 050-WTWT-TRF (071-105-8709). Low-cost or free programs are offered by many hospitals, local chapters of the [place] [employer] (948-407-8039) and the [place] [employer] (486-318-3526). Support at home is important too. Non-smokers can help by offering praise and encouragement. If the smoker fails to quit, encourage them to try again! [id number] Medicines: For those who can't quit on their own, Nicotine Replacement Therapy (NRT) may make quitting much easier. Certain aids such as the nicotine patch, gum and lozenge are available without a prescription. However, it is best to use these under the guidance of your doctor. The skin patch provides a steady supply of nicotine to the body. Nicotine gum and lozenge gives temporary bursts of low levels of nicotine. Both methods take the edge off the craving for cigarettes. WARNING: If you feel symptoms of nicotine overdose, such as nausea, vomiting, dizziness, weakness, or fast heartbeat, stop using these and see your doctor. Prescription Medicines: After evaluating your smoking patterns and prior attempts at quitting, your doctor may offer a prescription medicine such as bupropion (Zyban, Wellbutrin), varenicline (Chantix, Champix), a niocotine inhaler or nasal spray. Each has its unique advantage and side effects which your doctor can review with you. Health Benefits Of Quitting: The benefits of quitting start right away and keep improving the longer you go without smokin minutes: blood pressure and pulse return to normal 8 hours: oxygen levels return to normal 2 days: ability to smell and taste begins to improve as damaged nerves start to regrow 2-3 weeks: circulation and lung function improves 1-9 months: decreased cough, congestion and shortness of breath; less tired 1 year: risk of heart attack decreases by half 5 years: risk of lung cancer decreases by half; risk of stroke becomes the same as a non-smoker For information about how to quit smoking, visit the following links: National Cancer [place] , Clearing the Air, Quit Smoking Today - an online booklet. http://www.smokefree.gov/pubs/clearing_the_air.pdf Smokefree.gov http://smokefree.gov/ QuitNet http://www.quitnet.com/ You have been given the following additional information: Depression Alcohol Intoxication Smoking Cessation (Electronically signed by Shamir Head Dr. 02/21/2017 9:14)
== END 2017-02-21 03:09 | disposition home or self-care (01) ==
LOC: ED SRH 19:09
DX: F19.14 Other psychoactive substance abuse with psychoactive substance-induced mood disorder (principal); F10.120 Alcohol abuse with intoxication, uncomplicated; R45.851 Suicidal ideations; Y90.7 Blood alcohol level of 200-239 mg/100 ml; Z79.891 Long term (current) use of opiate analgesic; Z79.899 Other long term (current) drug therapy; Z88.0 Allergy status to penicillin
CPT/HCPCS: 90004; 90100; 92010; 92760; 92761; 92762; 92763; 92764; 92765; 92766; 92767; 92780; 93070; 95059; 97000